=== PATIENT | male | born 1930 | race Caucasian/White ===

== ENCOUNTER 2017-05-05 23:00 | Emergency (ER) | payer OTHER ==
[~2017-05-05] VITALS: Ht 182.9 cm; Wt 90.7 kg
== END 2017-05-06 00:28 | disposition home or self-care (01) ==
LOC: FSED 23:00
DX: Z43.1 Encounter for attention to gastrostomy (principal); R63.3 Feeding difficulties; E11.9 Type 2 diabetes mellitus without complications; I51.9 Heart disease, unspecified; E78.5 Hyperlipidemia, unspecified; G20 Parkinson's disease; K21.9 Gastro-esophageal reflux disease without esophagitis; G70.00 Myasthenia gravis without (acute) exacerbation
CPT/HCPCS: 99282